=== PATIENT | male | born 1995 | race American Indian/Alaskan Native ===

== ENCOUNTER 2016-03-08 11:39 | Emergency (ER) | payer SELFPAY ==
[2016-03-08 12:34] VITALS: BP 122/72
[2016-03-08] MEDS ORDERED: TYLENOL PO ONE (12:35)
[2016-03-08] MEDS ORDERED: TYLENOL ONE (12:37)
== END 2016-03-08 17:30 | disposition left against medical advice (07) ==
LOC: ED 11:39
DX: R11.10 Vomiting, unspecified (principal); M79.1 Myalgia; Z53.21 Procedure and treatment not carried out due to patient leaving prior to being seen by health care provider

== ENCOUNTER 2017-09-12 12:10 | Emergency (ER) | payer OTHER ==
[2017-09-12 12:26] VITALS: BP 114/60
[2017-09-12] MEDS ORDERED: MOTRIN PO ONE (15:44)
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
== END 2017-09-12 16:04 | disposition home or self-care (01) ==
LOC: ED 12:10
DX: M25.511 Pain in right shoulder (principal); F17.200 Nicotine dependence, unspecified, uncomplicated; V89.2XXA Person injured in unspecified motor-vehicle accident, traffic, initial encounter; Y93.89 Activity, other specified; Y92.488 Other paved roadways as the place of occurrence of the external cause; Y99.8 Other external cause status
CPT/HCPCS: 99282; 99283